=== PATIENT | female | born 1940 | race Caucasian/White ===

== ENCOUNTER 2018-05-31 06:35 | Inpatient (IN) | payer OTHER, MEDICAID ==
[~2018-05-31] VITALS: Ht 162.6 cm; Wt 74.8 kg
[~2018-05-31 06:35] MED LIST: CLON1TAB5 PO; HTN MEDICATION; LEVO112T5 PO; LEVO50TA8 PO; LOSA50TA3 PO; OMEP20CA10 PO; PHEDM120 PO; SERT25TA PO; TIMO5DRO4 OP; TRAM100T34 PO; XALEYE OP
[2018-05-31] MEDS ORDERED: oxyCODONE HCL 10 MG TAB.ER.12H PO ONE ×2 (06:57→07:00)
[2018-05-31] MEDS ORDERED: CELECOXIB 200 MG CAPSULE ONE (06:58)
[2018-05-31] MEDS ORDERED: GABAPENTIN 300 MG CAPSULE ONE (06:58)
[2018-05-31] MEDS ORDERED: ACETAMINOPHEN 500 MG TABLET ONE (06:58)
[2018-05-31] MEDS ORDERED: TRANEXAMIC ACID 650 MG TABLET ONE (06:59)
[2018-05-31] MEDS ORDERED: CELECOXIB 200 MG CAPSULE PO ONE (07:00)
[2018-05-31] MEDS ORDERED: TRANEXAMIC ACID 650 MG TABLET PO ONE (07:00)
[2018-05-31] MEDS ORDERED: CEFAZOLIN 2 GM IVPB PREMIX 50 ML IV ONE (07:00)
[2018-05-31] MEDS ORDERED: NACL 0.9% 1,000 ML IV ONE (07:00)
[2018-05-31] MEDS ORDERED: GABAPENTIN 300 MG CAPSULE PO ONE (07:00)
[2018-05-31] MEDS ORDERED: ACETAMINOPHEN 500 MG TABLET PO ONE (07:00)
[2018-05-31] MEDS ORDERED: POLYMYXIN 500,000/BACIT.10,000 UNITS in NS IRR 1 L IR ONE (07:52)
[2018-05-31] MEDS ORDERED: D5/0.45 NS 1,000 ML IV ONE (08:09)
[2018-05-31] MEDS ORDERED: TRANEXAMIC ACID 1,000 MG/10 ML VIAL IV ONE (08:10)
[2018-05-31] MEDS ORDERED: LR 1,000 ML IV.SOLN IV ONE (08:10)
[2018-05-31] MEDS ORDERED: BUPIVACAINE /PF 0.75% 10 ML VIAL INJ ONE (08:10)
[2018-05-31] MEDS ORDERED: VANCOMYCIN HCL 1000 MG/VIAL IV ONE (08:10)
[2018-05-31] MEDS ORDERED: ROPIVACAINE 0.2% (NAROPIN) PF SOLUTION 100 ML BOTTLE EP ONE (08:10)
[2018-05-31] MEDS ORDERED: ROPIVACAINE HCL/PF 5 MG/ML 0.5% 30 ML VIAL INJ ONE (08:10)
[2018-05-31] MEDS ORDERED: MIDAZOLAM HCL 5 MG/5 ML VIAL IVP ONE (08:10)
[2018-05-31] MEDS ORDERED: ACETAMINOPHEN 325 MG TABLET PO PRN (08:15)
[2018-05-31] MEDS ORDERED: BISACODYL 10 MG/SUPPOSITORY RC PRN (08:15)
[2018-05-31] MEDS ORDERED: NALBUPHINE HCL 10 MG/ML AMP IVP PRN (09:00)
[2018-05-31] MEDS ORDERED: ONDANSETRON HCL 4 MG/2 ML VIAL IVP PRN ×2 (09:00)
[2018-05-31] MEDS ORDERED: OXYCODONE/ACETAMINOPHEN *10*mg/325 mg TABLET PO PRN (09:00)
[2018-05-31] MEDS ORDERED: fentaNYL CITRATE/PF 100 MCG/2 ML AMP IVP PRN ×2 (09:00)
[2018-05-31] MEDS ORDERED: DIPHENHYDRAMINE INJ 50 MG/ML VIAL IVP PRN ×2 (09:00→16:00)
[2018-05-31] MEDS ORDERED: RIVAROXABAN 10 MG TABLET PO SCH (09:00)
[2018-05-31] MEDS ORDERED: KETOROLAC TROMETHAMINE 30 MG VIAL IVP PRN (09:00)
[2018-05-31 11:30] VITALS: BP_SYST 134
[2018-05-31 11:41] VITALS: BP_SYST 134
[2018-05-31] MEDS: CEFAZOLIN 1 GM IVPB PREMIX 50 ML IV SCH ×2 (14:18→22:18)
[2018-05-31 15:20] VITALS: BP_SYST 146
[2018-05-31] MEDS ORDERED: ROPIVACAINE 0.2% 100 ML INJ SCH (15:54)
[2018-05-31] MEDS: ROPIVACAINE 0.2% INJ SCH (16:06)
[2018-05-31 17:00] VITALS: BP_SYST 146
[2018-05-31] MEDS: RIVAROXABAN 10 MG TABLET PO SCH (17:46)
[2018-05-31] MEDS: OXYCODONE/ACETAMINOPHEN *10*mg/325 mg TABLET PO PRN (17:54)
[2018-05-31 20:00] VITALS: BP_SYST 158
[2018-05-31] MEDS: MORPHINE SULFATE 10 MG/ML VIAL IM PRN (20:19)
[2018-06-01 01:20] VITALS: BP_SYST 130
[2018-06-01 08:25] VITALS: BP_SYST 129
[2018-06-01] MEDS: HYDROcodone/ACETAMIN 7.5-325 MG TAB PO PRN (09:07)
[2018-06-01] MEDS ORDERED: PROMETHAZINE-DM 6.25 MG-15 MG/5 ML UDC PO PRN (09:15)
[2018-06-01 11:19] VITALS: BP_SYST 138
[2018-06-01] MEDS: TIMOLOL MALEATE 0.5% OPHTHALMIC DROPS 5 ML OP SCH ×2 (12:08→22:13)
[2018-06-01] MEDS: ROPIVACAINE 0.2% INJ SCH (13:03)
[2018-06-01 15:02] VITALS: BP_SYST 139
[2018-06-01] MEDS: MORPHINE SULFATE 10 MG/ML VIAL IM PRN (17:30)
[2018-06-01] MEDS: RIVAROXABAN 10 MG TABLET PO SCH (17:31)
[2018-06-01 20:00] VITALS: BP_SYST 116
[2018-06-01] MEDS: MUPIROCIN 2% TOPICAL OINTMENT 22 GM NS SCH (22:13)
[2018-06-02 00:10] VITALS: BP_SYST 105
[2018-06-02] MEDS: LEVOTHYROXINE SODIUM 0.112 MG TABLET PO SCH (06:37)
[2018-06-02 08:00] VITALS: BP_SYST 156
[2018-06-02] MEDS: SERTRALINE HCL 50 MG TABLET PO SCH (08:29)
[2018-06-02] MEDS: LOSARTAN POTASSIUM 50 MG TABLET (COZAAR) PO SCH (08:30)
[2018-06-02] MEDS: OMEPRAZOLE 20 MG CAPSULE.DR (PriLOSEC) PO SCH (08:30)
[2018-06-02] MEDS: MUPIROCIN 2% TOPICAL OINTMENT 22 GM NS SCH ×2 (08:32→21:52)
[2018-06-02] MEDS: TIMOLOL MALEATE 0.5% OPHTHALMIC DROPS 5 ML OP SCH ×2 (08:32→21:52)
[2018-06-02] MEDS: HYDROcodone/ACETAMIN 7.5-325 MG TAB PO PRN (09:43)
[2018-06-02] MEDS ORDERED: BISACODYL 5 MG TABLET.DR (DULCOLAX) PO PRN (11:15)
[2018-06-02 12:00] VITALS: BP_SYST 156
[2018-06-02 16:27] VITALS: BP_SYST 152
[2018-06-02] MEDS: RIVAROXABAN 10 MG TABLET PO SCH (17:38)
[2018-06-02 20:00] VITALS: BP_SYST 152
[2018-06-02] MEDS ORDERED: LATANOPROST 2.5 ML DROPS (XALATAN) OP SCH (21:00)
[2018-06-03 00:55] VITALS: BP_SYST 143
[2018-06-03] MEDS: LEVOTHYROXINE SODIUM 0.112 MG TABLET PO SCH (06:41)
[2018-06-03] MEDS: OMEPRAZOLE 20 MG CAPSULE.DR (PriLOSEC) PO SCH (06:42)
[2018-06-03 08:39] LABS: BASOPHILS % (AUTO) 0.3 % (0.0-2.0); EOSINOPHILS # (AUTO) 0.1 K/uL (0.0-0.4); EOSINOPHILS % (AUTO) 0.8 % (0.0-4.0); HEMATOCRIT 29.5 % (36-48); LYMPHOCYTES # (AUTO) 1.6 K/uL (1.0-5.5); LYMPHOCYTES % (AUTO) 15.6 % (20.5-51.5); MEAN CORPUSCULAR HEMOGLOBIN 31 pg (27-31); MEAN CORPUSCULAR HGB CONC 34 % (32-36); MEAN CORPUSCULAR VOLUME 92 fL (79.0-98.0); MONOCYTES # (AUTO) 0.9 K/uL (0.0-1.0); MONOCYTES % (AUTO) 8.5 % (1.7-9.3); NEUTROPHILS # (AUTO) 7.8 K/uL (1.8-7.7); NEUTROPHILS % (AUTO) 74.8 % (40.0-70.0); PLATELET COUNT (AUTO) 176 K/uL (130-430); RED BLOOD CELL COUNT(AUTO) 3.19 MIL/uL (4.2-6.2); RED CELL DISTRIBUTION WIDTH 12.8 % (9.0-15.0); WHITE BLOOD COUNT (AUTO) 10.4 K/uL (4.8-10.8)
[2018-06-03] MEDS: SERTRALINE HCL 50 MG TABLET PO SCH (08:53)
[2018-06-03] MEDS: TIMOLOL MALEATE 0.5% OPHTHALMIC DROPS 5 ML OP SCH (08:53)
[2018-06-03] MEDS: MUPIROCIN 2% TOPICAL OINTMENT 22 GM NS SCH (08:53)
[2018-06-03] MEDS: OXYCODONE/ACETAMINOPHEN *10*mg/325 mg TABLET PO PRN (08:54)
[2018-06-03] MEDS: LOSARTAN POTASSIUM 50 MG TABLET (COZAAR) PO SCH (08:55)
[2018-06-03 09:21] VITALS: BP_SYST 149
[2018-06-03] MEDS ORDERED: ONDANSETRON HCL 4 MG/2 ML VIAL IVP ONE (10:30)
[2018-06-03] MEDS ORDERED: RIVA10TA PO (11:00)
[2018-06-03] MEDS ORDERED: HYDR-551 PO (11:01)
[2018-06-03 12:45] VITALS: BP_SYST 140
[2018-06-03 14:02] VITALS: BP_SYST 149
[2018-06-03 17:37] VITALS: BP_SYST 140
== END 2018-06-03 14:50 | disposition home health service (06) | DRG 470 ==
LOC: SMU 06:35
PROVIDERS: ADMIT Orthopaedic Surgery; ATTEND Orthopaedic Surgery
PROC: 0SRC0J9 Replacement of Right Knee Joint with Synthetic Substitute, Cemented, Open Approach (ICD-10-PCS; principal; 2018-05-31 07:30)
DX: M17.11 Unilateral primary osteoarthritis, right knee (principal); G89.29 Other chronic pain; M25.761 Osteophyte, right knee; I10 Essential (primary) hypertension; E07.9 Disorder of thyroid, unspecified; Z79.899 Other long term (current) drug therapy
CPT/HCPCS: 36415; 85025; 87081; 88305; 88311; 94010; 97039; 97110-GP; 97116-GP; 97530-GP; 97535-GP; C1713; C1776; J0690; J2250; J2270; J2405; J2795; J3370; J3490; J7120